=== PATIENT | male | born 1990 | race American Indian/Alaskan Native ===

== ENCOUNTER 2018-08-22 15:26 | Emergency (ER) | payer BC ==
[2018-08-22 15:53] VITALS: BP 136/68
--- NOTE | 2018-08-22 17:57 | Emergency Department Report ---
ED Headache HPI - General Chief Complaint: Headache Stated Complaint: BAD HEADACHE/EYE PAIN Time Seen by Provider: 08/22/18 17:51 - History of Present Illness Timing/Duration: 1 week Quality: moderate Head Injury Location: frontal Recent Head Trauma: no recent headache/trauma Associated Symptoms: facial pain, nasal congestion, other (pain behind eyes and feels them moving. no loss of vision). denies: fever/chills, nausea/vomiting, numbness in legs/feet, sinus infection, stiff neck, weakness Allergies/Adverse Reactions: Allergies No Known Allergies Allergy (Verified 08/22/18 15:49) Home Medications: Ambulatory Orders Docusate Sodium [Colace] 100 mg PO BID 30 Days #60 capsule 08/13/18 traMADol [Ultram 50 MG tab] 50 mg PO Q6HR PRN #10 tablet 08/13/18 Acetaminophen/Codeine [Tylenol #3] 1 tab PO Q6H PRN #15 tab 08/22/18 Amoxicillin [Amoxicillin TAB] 875 mg PO BID #20 tablet 08/22/18 predniSONE [Deltasone] 20 mg PO QDAY #5 tab 08/22/18 ED Review of Systems ROS: Stated complaint: BAD HEADACHE/EYE PAIN Other details as noted in HPI Constitutional: denies: chills, fever Eyes: denies: eye pain, eye discharge, vision change ENT: denies: ear pain, throat pain Respiratory: denies: cough, shortness of breath, wheezing Cardiovascular: denies: chest pain, palpitations Endocrine: no symptoms reported Gastrointestinal: denies: abdominal pain, nausea, diarrhea Genitourinary: denies: urgency, dysuria Musculoskeletal: denies: back pain, joint swelling, arthralgia Skin: denies: rash, lesions Neurological: headache. denies: weakness, paresthesias Psychiatric: denies: anxiety, depression Hematological/Lymphatic: denies: easy bleeding, easy bruising ED Past Medical Hx - Past Medical History Previous Medical History?: No - Surgical History Past Surgical History?: No - Social History Smoking Status: Never Smoker Substance Use Type: Alcohol - Medications Home Medications: Home Medications Medication Instructions Recorded Confirmed Last Taken Type Docusate Sodium [Colace] 100 mg PO BID 30 Days #60 capsule 08/13/18 Unknown Rx traMADol [Ultram 50 MG tab] 50 mg PO Q6HR PRN #10 tablet 08/13/18 Unknown Rx Acetaminophen/Codeine [Tylenol #3] 1 tab PO Q6H PRN #15 tab 08/22/18 Unknown Rx Amoxicillin [Amoxicillin TAB] 875 mg PO BID #20 tablet 08/22/18 Unknown Rx predniSONE [Deltasone] 20 mg PO QDAY #5 tab 08/22/18 Unknown Rx ED Physical Exam - General Limitations: No Limitations General appearance: alert, in no apparent distress - Head Head exam: Present: atraumatic, normocephalic - Eye Eye exam: Present: normal appearance, PERRL, EOMI Pupils: Present: other (neg fundus exam) - ENT ENT exam: Present: normal exam, normal orophraynx, mucous membranes moist, other (sinus pressure. Slight tenderness with percussion to the frontal and ethmoid sinuses. There is nasal congestion with swelling and yellowish green discharge spell. Small effusion to the left and right ear.) - Neck Neck exam: Present: normal inspection, full ROM. Absent: lymphadenopathy - Respiratory Respiratory exam: Present: normal lung sounds bilaterally. Absent: respiratory distress, wheezes, rhonchi, chest wall tenderness, accessory muscle use, decreased breath sounds - Cardiovascular Cardiovascular Exam: Present: regular rate, normal rhythm. Absent: systolic murmur, diastolic murmur, rubs, gallop - GI/Abdominal GI/Abdominal exam: Present: soft, normal bowel sounds. Absent: tenderness, guarding, hyperactive bowel sounds, hypoactive bowel sounds, organomegaly, mass, pulsatile mass - Rectal Rectal exam: Present: deferred - Extremities Exam Extremities exam: Present: normal inspection, full ROM, normal capillary refill. Absent: pedal edema, calf tenderness - Back Exam Back exam: Present: normal inspection, full ROM. Absent: CVA tenderness (R), CVA tenderness (L), muscle spasm, paraspinal tenderness, vertebral tenderness - Neurological Exam Neurological exam: Present: alert, oriented X3, CN II-XII intact. Absent: motor sensory deficit, reflexes normal - Psychiatric Psychiatric exam: Present: normal affect, normal mood - Skin Skin exam: Present: warm, dry, intact, normal color. Absent: rash ED Course Vital Signs 08/22/18 15:50 Temperature 99.9 F H Pulse Rate 93 H Respiratory 18 Rate Blood Pressure 136/68 O2 Sat by Pulse 98 Oximetry ED Medical Decision Making - Radiology Data Radiology results: report reviewed (negative CT of the head) - Differential Diagnosis sinusitis, sinus pressure, migraines, Critical care attestation.: If time is entered above; I have spent that time in minutes in the direct care of this critically ill patient, excluding procedure time. ED Disposition Clinical Impression: Cephalgia, Sinusitis Disposition: - TO HOME OR SELFCARE Is pt being admited?: No Does the pt Need Aspirin: No Condition: Stable Instructions: Sinusitis (ED), Acute Bacterial Rhinosinusitis (ED) Additional Instructions: Return to emergency department to experiencing dizziness, visual changes, uncontrolled fever, UNcontrollable, vomiting, and the feeling much condition is worsening Referrals: PRIMARY CARE [Primary Care Provider] - 3-5 Days [facility] [Provider Group] - 3-5 Days
[2018-08-22] MEDS ORDERED: TYLENOL PO ONE ×2 (17:58→18:00)
[2018-08-22] MEDS ORDERED: TYLENOL ONE (18:02)
--- NOTE | 2018-08-22 19:14 | Cat Scan Report ---
FINAL REPORT PROCEDURE: CT head without contrast. TECHNIQUE: Computerized tomography of the head was performed without contrast material. HISTORY: Headache. COMPARISON: No prior studies are available for comparison. FINDINGS: The ventricles are normal in size. The ferrer matter and white matter appear normal. There are no mass lesions. There is no intracranial hemorrhage. The calvarium appears intact. The mastoid air cells and paranasal sinuses are clear as far as visualized. IMPRESSION: Normal study.
== END 2018-08-22 20:51 | disposition home or self-care (01) ==
LOC: ED 15:26
DX: R51 Headache (principal); J32.9 Chronic sinusitis, unspecified
CPT/HCPCS: 70450; 99283